=== PATIENT | male | born 1950 | race Caucasian/White ===

== ENCOUNTER 2021-06-18 20:52 | Emergency (ER) | payer SELFPAY ==
[~2021-06-18] VITALS: Ht 177.8 cm; Wt 69.0 kg
[2021-06-18 20:57] VITALS: BP 138/88
[2021-06-18] MEDS ORDERED: TOPUD MT (21:47)
[2021-06-18] MEDS ORDERED: ACETAMINOPHEN 325MG TABLET PO ONE (22:00)
== END 2021-06-18 23:03 | disposition home or self-care (01) ==
LOC: ER 20:52
DX: M25.519 Pain in unspecified shoulder (principal); F17.290 Nicotine dependence, other tobacco product, uncomplicated
CPT/HCPCS: 99283; 99406